=== PATIENT | male | born 1950 | race Caucasian/White ===

== ENCOUNTER 2024-05-26 22:21 | Emergency (ER) | payer OTHER ==
[2024-05-26 22:43] VITALS: BP 133/81; PULSE 64; RESP 16; TEMP 97.3; BMI 28.3
== END 2024-05-26 23:10 | disposition home or self-care (01) ==
LOC: FER 22:21
DX: S90.111A Contusion of right great toe without damage to nail, initial encounter (principal); W22.8XXA Striking against or struck by other objects, initial encounter
CPT/HCPCS: 73660-TC-LT-FY; 99283-25